=== PATIENT | male | born 1970 | race African-American/Black ===

== ENCOUNTER 2018-06-28 19:01 | Emergency (ER) | payer OTHER ==
[~2018-06-28] VITALS: Ht 177.8 cm; Wt 93.0 kg
[2018-06-28] MEDS ORDERED: BACTRIM DS TAB1 EACH PO (19:53)
[2018-06-28 20:33] VITALS: BP 177/104
== END 2018-06-28 20:33 | disposition home or self-care (01) ==
LOC: ER 19:01
DX: L02.413 Cutaneous abscess of right upper limb (principal); F17.210 Nicotine dependence, cigarettes, uncomplicated